=== PATIENT | female | born 1985 | race Caucasian/White ===

== ENCOUNTER 2016-11-22 17:00 | Inpatient (IN) | payer OTHER ==
--- NOTE | ~2016-11-22 | PN ---
Unit #: [id number] #: [id number] Patient: BOB HERNANDEZ [id number] [facility] [address] [place] [address] [id number] MR#: [id number] NAME: BOB HERNANDEZ ROOM: [facility] Age: 31 Sex: F Admission Date: 11/22/2016 : 1985 Attending Physician: Surekha Eaton M.D. Admitting Physician: Surekha Eatno M.D. Primary Care Physician: Generic Doctor Not In System [facility] PROGRESS NOTES DATE November 24, 2016 DISCUSSION Ms. Hernandez is a 31-year-old white female, who was seen today and chart was reviewed and the case was discussed with the staff. She reports not feeling good and states "but I'm still alive." The patient does report persistent depression and anxiety, feelings of hopelessness, helplessness, and suicidal ideations, and that she does not feel Cymbalta is helping her, but she states "it used to help." MENTAL STATUS EXAMINATION Young white female, who was casually dressed with fair personal hygiene and appears to be in no acute distress or discomfort. She was awake and alert on interaction with intact orientation. Her mood was anxious and depressed with a congruent affect. She reports having suicidal ideations but denies any homicidal ideations. Her insight and judgment remain slightly impaired. TREATMENT PLAN 1. We will continue her on her current medications and treatment protocol, and will monitor her response to the medications, and make further adjustments as needed. 2. We will continue to followup. Dictated by... Naz Ochoa/jose TD: 11/25/2016 08:08 JOB #: [id number] Unit #: [id number] #: [id number] Patient: BOB HERNANDEZ PROGRESS NOTES Page 1 of 1 X Surekha Eaton MD PROGRESS NOTE
--- NOTE | ~2016-11-22 | DS ---
Unit #: [id number] #: [id number] Patient: [facility] [id number] [facility] [address] [place] [address] [id number] MR#: [id number] NAME: BOB HERNANDEZ ROOM: [facility] Age: 31 Sex: F Admission Date: 11/22/2016 : 1985 Discharge Date: 12/01/2016 Attending Physician: Surekha Eaton M.D. Primary Care Physician: Generic Doctor Not In System DISCHARGE SUMMARY IDENTIFYING DATA Ms. Hernandez is a 31-year-old white female, who is a resident of [place], [place], and was self-referred to the hospital on a voluntary basis and was accompanied by her mother. CHIEF COMPLAINT "I've been on drug binge for the past week." DISCHARGE DIAGNOSES Psychiatric: Major depressive disorder, recurrent, moderate, without psychotic features; alcohol dependence, moderate and acute withdrawals; opioid dependence, moderate and acute withdrawals; methamphetamine dependence, moderate; cannabis abuse and dependence, moderate. Medical: None. Stressors: Mild psychosocial stressors. HISTORY OF PRESENT ILLNESS Please see initial psychiatric evaluation for details. PAST PSYCHIATRIC HISTORY Please see initial psychiatric evaluation for details. PAST MEDICAL HISTORY Please see initial psychiatric evaluation for details. HOSPITAL COURSE The patient was admitted to the adult psychiatric and chemical dependency unit at [facility] and was oriented to the hospital environment. Routine p.r.n. medications were initiated, and she was initially started on the detox protocol and was also started back on her home medications including her Cymbalta; however, she was seen to be exhibiting some significant depressive symptoms and even though she came out of the detox without any complication, she was still complaining of persistent depressive symptoms and suicidal ideations and as such, medications were adjusted and Cymbalta was gradually titrated up to 60 mg b.i.d. and rest of the medications were maintained and she was closely monitored. She was taking medications regularly and was tolerating them fairly well and was able to show a decent and therapeutic response with improvement in depression and anxiety and was denying any suicidal ideations, intent, or plan and as such, it was decided that she will be discharged home and will continue treatment on an outpatient basis. DISCHARGE MEDICATIONS Cymbalta 60 mg b.i.d. for depression, BuSpar 10 mg t.i.d. for anxiety, Unit #: [id number] #: [id number] Patient: BOB HERNANDEZ levothyroxine 0.1 mg a day for hypothyroidism. DISCHARGE CONDITION Stable. PROGNOSIS Fair. Dictated by... Naz Ochoa/saloni TD: 12/01/2016 06:25 JOB #: [id number] DISCHARGE SUMMARY Page 1 of 1 X Surekha Eaton MD X DISCHARGE SUMMARY
--- NOTE | ~2016-11-22 | PN ---
Unit #: [id number] #: [id number] Patient: BOB HERNANDEZ [id number] [facility] [address] [place] [address] [id number] I MR#: [id number] NAME: BOB HERNANDEZ ROOM: [facility] Age: 31 Sex: F Admission Date: 11/22/2016 : 1985 Attending Physician: Surekha Eaton M.D. Admitting Physician: Surekha Eaton M.D. Primary Care Physician: Generic Doctor Not In System [facility] PROGRESS NOTES DATE November 27, 2016 DISCUSSION Ms. Hernandez is a 31-year-old white female, who was seen today and chart was reviewed and the case was discussed with the staff. She has been anxious, withdrawn, and rather seclusive to herself. Meanwhile, she has been cooperative with the treatment recommendations and has been taking the medications and tolerating them fairly well with no reported side effects. MENTAL STATUS EXAMINATION Young white female, who was casually dressed with fair personal hygiene and appears to be in no acute distress or discomfort. The patient was awake and alert with intact orientation. Her mood was anxious with a congruent affect. Her speech is slow and restricted in content. She denies any suicidal or homicidal ideations, and also denies any auditory or visual hallucinations. Her insight and judgment remain slightly impaired. TREATMENT PLAN 1. We will continue her on her current medications and treatment protocol, and will monitor her response to the medications, and make further adjustments as needed. 2. We will continue to followup. Dictated by... Naz Ochoa/jose TD: 11/27/2016 08:59 JOB #: [id number] Unit #: [id number] #: [id number] Patient: BOB HERNANDEZ PROGRESS NOTES Page 1 of 1 X Surekha Eaton MD PROGRESS NOTE
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
--- NOTE | ~2016-11-22 | PN ---
Unit #: [id number] #: [id number] Patient: BOB HERNANDEZ [id number] [facility] [address] [place] [address] [id number] MR#: [id number] NAME: BOB HERNANDEZ ROOM: [facility] Age: 31 Sex: F Admission Date: 11/22/2016 : 1985 Attending Physician: Surekha Eaton M.D. Admitting Physician: Naz Ochoa PROGRESS NOTES DATE OF SERVICE: 11/29/2016 SUBJECTIVE Ms. Hernandez is a 31-year-old white female, who was seen today and chart was reviewed, and case was discussed with the staff. She has been anxious, withdrawn, and rather seclusive to herself. Meanwhile, she has been taking the medications and tolerating them fairly well with no reported side effects. MENTAL STATUS EXAMINATION Young white female, who was casually dressed with fair personal hygiene, appears to be in no acute distress or discomfort. She was awake and alert on interaction with intact orientation. Her mood was anxious with a congruent affect. Her speech was slow and goal directed. The patient denies any suicidal or homicidal ideations. Her insight and judgment remain slightly impaired. TREATMENT PLAN 1. We will continue her on her current medications and treatment protocol. We will monitor her response to the medications and make further adjustments as needed. 2. We will continue to follow up. Dictated by... Naz Ochoa/adenl TD: 11/29/2016 16:57 JOB #: [id number] [facility] PROGRESS NOTES Page 1 of 1 X Surekha Eaton MD PROGRESS NOTE
--- NOTE | ~2016-11-22 | CO ---
Unit #: [id number] #: [id number] Patient: ANA HERNANDEZ [id number] [place] [address] [id number] MR#: [id number] NAME: ANA HERNANDEZ ROOM: [facility] Age: 31 Sex: F Admission Date: 11/22/2016 : 1985 Attending Physician: Surekha Eaton M.D. Primary Care Physician: Generic Doctor Not In System Consultation Date: 11/27/2016 CONSULTATION REPORT SUBJECTIVE Ana is a 31-year-old who has complained of a rash under her arms in the folds of her legs and abdomen. This is a chronic rash and worse in the summer. PLAN We will start her on a hydrocortisone cream 1% to be applied to the affected areas b.i.d. She is also to use an antifungal powder. Dictated by... Emilie Boss P.A.-C. for Naz Olguin/saloni TD: 12/04/2016 02:51 JOB #: [id number] CONSULTATION REPORT Page 1 of 1 X Emilie Boss CONSULTATION REPORT
--- NOTE | ~2016-11-22 | HP ---
Unit #: [id number] #: [id number] Patient: BOB HERNANDEZ [id number] [place] [address] [id number] I MR#: [id number] NAME: BOB HERNANDEZ ROOM: [facility] Age: 31 Sex: F Admission Date: 11/22/2016 : 1985 Attending Physician: Surekha Eaton M.D. Admitting Physician: Surekha Eaton M.D. Primary Care Physician: Generic Doctor Not In System HISTORY AND PHYSICAL HISTORY OF PRESENT ILLNESS The patient is a 31-year-old female who states she is here due to detox from multiple drugs and alcohol. PAST MEDICAL HISTORY Significant for depression and anxiety and suicidal ideation. PAST SURGICAL HISTORY Significant for cholecystectomy. SOCIAL HISTORY Positive for alcohol and drugs. ALLERGIES None. FAMILY HISTORY Noncontributory. REVIEW OF SYSTEMS CONSTITUTIONAL: No fever or chills. HEENT: Denies any sore throat, ear pain or runny nose. CARDIOVASCULAR: Denies chest pain, irregular heart rhythm or palpitations. CHEST: Denies shortness of breath or cough. No hemoptysis. GASTROINTESTINAL: Denies nausea, vomiting, diarrhea or chronic constipation. ENDOCRINE: Denies history of increased thirst or urination. No recent significant weight loss or gain. GENITOURINARY: Denies dysuria, frequency, or hematuria. SKIN: Denies any rashes. HEMATOLOGIC: Denies history of increased bleeding or bruising. MUSCULOSKELETAL: Denies any hot, swollen joints. No generalized muscle pain. NEUROLOGIC: Denies problems with vision or speech. No frequent, severe headaches. No numbness, tingling or weakness in any extremities. Denies loss of bladder or bowel control. CURRENT MEDICATIONS 1. Nexium 20 mg two caps twice daily 2. BuSpar 10 mg p.o. t.i.d. 3. Levothyroxine 100 mg p.o. daily Unit #: [id number] #: [id number] Patient: BOB HERNANDEZ 4. Duloxetine 60 mg p.o. daily 5. Bydureon 2 mg sub-q weekly PHYSICAL EXAMINATION GENERAL: Alert, oriented in no acute distress. VITAL SIGNS: Temperature 98.7, heart rate 71, respirations 20, blood pressure 108/69. HEIGHT: 5 feet 6 inches WEIGHT: 264 pounds SKIN: Tattoo to the left foot, the midline lumbar area. Multiple red areas bilateral arms and lower extremities. HEENT: Normocephalic. TMs not viewed. Oral and nasal passages clear. Conjunctivae clear. PERRLA. EOMs intact. NECK: Supple without lymphadenopathy or thyromegaly. HEART: Regular rate and rhythm without murmur. LUNGS: Clear. ABDOMEN: Soft, nontender, without masses or hepatosplenomegaly. : Not done. EXTREMITIES: No evidence of cyanosis, clubbing or edema. Moves all without focal deficit. NEUROLOGICAL: Grossly within normal limits. Cranial Nerves: II: Visual sullivan are intact. III, IV AND : Extraocular movements are intact. Pupils are equal, round and reactive to light. V: Facial sensation is grossly normal. VII: Facial movements and expression are normal. VIII: Auditory acuity grossly intact. IX, X: Uvula is midline. Phonation is normal. XI: Patient shrugs shoulders and turns head normally. XII: Tongue protrudes in the midline. Sensory and Motor Function: Sensory and motor sensation is grossly normal. Motor: moves all extremities well. Coordination: Gait is normal. Deep Tendon Reflexes: Intact. IMPRESSION Psychiatric admission. RECOMMENDATIONS Psychiatric, per psychiatrist. MEDICAL: I see no contraindications to participating in facility's activities. MEDICAL PROGNOSIS Good. Dictated by... Tonio Medina/martin TD: 11/24/2016 02:49 JOB #: [id number] Unit #: [id number] #: [id number] Patient: BOB HERNANDEZ HISTORY AND PHYSICAL Page 1 of 1 X Yaima Gaytan APR X HISTORY AND PHYSICAL
--- NOTE | ~2016-11-22 | PN ---
Unit #: [id number] #: [id number] Patient: BOB HERNANDEZ [id number] [facility] [address] [place] [address] [id number] I MR#: [id number] NAME: BOB HERNANDEZ ROOM: [facility] Age: 31 Sex: F Admission Date: 11/22/2016 : 1985 Attending Physician: Surekha Eaton M.D. Admitting Physician: Surekha Eaton M.D. Primary Care Physician: Generic Doctor Not In System [facility] PROGRESS NOTES DATE November 28, 2016 DISCUSSION Ms. Hernandez is a 31-year-old white female, who was seen today and chart was reviewed and the case was discussed with the staff. She was cooperative with treatment recommendations and she has been taking the medications and tolerating them fairly well with no reported side effects. MENTAL STATUS EXAMINATION Young white female, who was casually dressed with fair personal hygiene and appears to be in no acute distress or discomfort. She was awake and alert on interaction with intact orientation. Her mood was anxious with a congruent affect. The patient denies any suicidal or homicidal ideations. Her insight and judgment remain significantly impaired. TREATMENT PLAN 1. We will continue her on her current medications and treatment protocol, and will monitor her response, and make further adjustments as needed. 2. We will continue to followup. Dictated by... Naz Ochoa/jose TD: 11/28/2016 08:44 JOB #: [id number] [facility] PROGRESS NOTES Page 1 of 1 X Surekha Eaton MD PROGRESS NOTE
--- NOTE | ~2016-11-22 | CO ---
Unit #: [id number] #: [id number] Patient: ANA HERNANDEZ [id number] [place] [address] [id number] MR#: [id number] NAME: ANA HERNANDEZ ROOM: [facility] Age: 31 Sex: F Admission Date: 11/22/2016 : 1985 Attending Physician: Surekha Eaton M.D. Primary Care Physician: Generic Doctor Not In System Consultation Date: 11/24/2016 CONSULTATION REPORT SUBJECTIVE Ana is a 31-year-old with abnormal urinalysis on admission. She has no complaints of urgency, frequency, or dysuria. There have been no recorded increased temperatures. OBJECTIVE GENERAL: Alert, obese, in no apparent distress. VITAL SIGNS: Blood pressure 120/70, heart rate 80, respirations 16, temperature 98.6. ABDOMEN: Soft and nontender. BACK: Negative CVA tenderness. DIAGNOSTIC STUDIES Admission urinalysis; 3+ bacteria, 50 to 100 wbc's. ASSESSMENT Urinary tract infection. PLAN Bactrim DS one p.o. b.i.d. x3 days. Dictated by... Emilie Boss P.A.-C. for Naz Olguin/saloni TD: 11/26/2016 02:17 JOB #: [id number] CONSULTATION REPORT Page 1 of 1 X Emilie Boss CONSULTATION REPORT
--- NOTE | ~2016-11-22 | PN ---
Unit #: [id number] #: [id number] Patient: BOB HERNANEDZ [id number] [facility] [address] [place] [address] [id number] MR#: [id number] NAME: BOB HERNANDEZ ROOM: [facility] Age: 31 Sex: F Admission Date: 11/22/2016 : 1985 Attending Physician: Surekha Eaton M.D. Admitting Physician: Surekha Eaton M.D. Primary Care Physician: Generic Doctor Not In System [facility] PROGRESS NOTES DATE November 30, 2016 DISCUSSION Ms. Hernandez is a 31-year-old white female, who was seen today and chart was reviewed and the case was discussed with the staff. She remains anxious, withdrawn, depressed, and rather seclusive to herself. Meanwhile, she has been cooperative with the treatment recommendations, and she has been taking the medications and tolerating them fairly well with no reported side effects. MENTAL STATUS EXAMINATION Young white female, who was casually dressed with fair personal hygiene and appears to be in no acute distress or discomfort. She was awake and alert on interaction with intact orientation. Her mood is anxious with a congruent affect. The patient denies any suicidal or homicidal ideations. Her insight and judgment remain slightly impaired. TREATMENT PLAN 1. We will continue her on her current medications and treatment protocol, and will monitor her response to the medications, and make further adjustments as needed. 2. We will continue to followup. Dictated by... Naz Ochoa/jose TD: 12/01/2016 08:53 JOB #: [id number] Unit #: [id number] #: [id number] Patient: BOB HERNANDEZ PROGRESS NOTES Page 1 of 1 X Surekha Eaton MD X PROGRESS NOTE
--- NOTE | ~2016-11-22 | PN ---
Unit #: [id number] #: [id number] Patient: BOB HERNANDEZ [id number] [facility] [address] [place] [address] [id number] MR#: [id number] NAME: BOB HERNANDEZ ROOM: [facility] Age: 31 Sex: F Admission Date: 11/22/2016 : 1985 Attending Physician: Surekha Eaton M.D. Admitting Physician: Surekha Eaton M.D. Primary Care Physician: Generic Doctor Not In System [facility] PROGRESS NOTES DATE November 25, 2016 DISCUSSION Ms. Hernandez is a 31-year-old white female, who was seen today and chart was reviewed and the case was discussed with the staff. The patient has been anxious, withdrawn, and rather seclusive to herself and reports persistent depressive symptoms. Meanwhile, she has been taking the medications and tolerating them fairly well with no reported side effects. MENTAL STATUS EXAMINATION Young white female, who was casually dressed with fair personal hygiene and appears to be in no acute distress or discomfort. The patient was awake and alert on interaction with intact orientation. Her mood was anxious with a congruent affect. The patient denies any suicidal or homicidal ideations. Her insight and judgment remain slightly impaired. TREATMENT PLAN 1. We will continue her on her current medications and treatment protocol, and will monitor her response to the medications, and make further adjustments as needed. 2. We will continue to followup. Dictated by... Naz Ochoa/jose TD: 11/26/2016 09:34 JOB #: [id number] Unit #: [id number] #: [id number] Patient: BOB HERNANDEZ PROGRESS NOTES Page 1 of 1 X Surekha Eaton MD X PROGRESS NOTE
--- NOTE | ~2016-11-22 | PN ---
Unit #: [id number] #: [id number] Patient: BOB HERNANDEZ [id number] [facility] [address] [place] [address] [id number] MR#: [id number] NAME: BOB HERNANDEZ ROOM: [facility] Age: 31 Sex: F Admission Date: 11/22/2016 : 1985 Attending Physician: Surekha Eaton M.D. Admitting Physician: Surekha Eaton M.D. Primary Care Physician: Generic Doctor Not In System [facility] PROGRESS NOTES DATE 11/26/2016 DISCUSSION Ms. Hernandez is a 31-year-old white female who was seen today and chart was reviewed and case was discussed with the staff. She has been anxious, withdrawn and rather seclusive to herself. Meanwhile, she has been complaining of significant anxiety and reporting that her current medication has not been helping her. Her Cymbalta was just increased to 90 mg daily and she still reports not feeling much better in her depressive symptoms. MENTAL STATUS EXAMINATION Young white female who was casually dressed with fair personal hygiene and appears to be in no acute distress or discomfort. She was awake and alert on interaction with intact orientation. Her mood was anxious with congruent affect. She denies any suicidal or homicidal ideation. Her insight and judgement remains slightly impaired. TREATMENT PLAN 1. Will continue current medications and treatment protocol. Will monitor response to the medications and make further adjustments as needed. 2. Will continue to follow up. Dictated by... Naz Ochoa/elie TD: 11/26/2016 18:26 JOB #: [id number] Unit #: [id number] #: [id number] Patient: BOB HERNANDEZ PROGRESS NOTES Page 1 of 1 X Surekha Eaton MD PROGRESS NOTE
[2016-11-23 11:07] LABS: URINE APPEARANCE CLOUDY; URINE BLOOD 4+ (NEG); URINE COLOR BROWN; URINE GLUCOSE NORM (NORM); URINE KETONE NEG (NEG); URINE LEUKOCYTE ESTERASE 3+ (NEG); URINE NITRATE POS (NEG); URINE PROTEIN 1+ (NEG); URINE UROBILINOGEN NORM (NORM)
[2016-11-23 11:11] LABS: URINE BILIRUBIN NEG (NEG)
[2016-11-23 11:38] LABS: BASOPHIL# 0.1 X10e3 (0-0.3); BASOPHIL% 0.8 % (0-2.5); EOSINOPHIL# 0.4 X10e3 (0-0.7); EOSINOPHIL% 4.8 % (0.0-7.0); HEMATOCRIT 37.3 % (35.0-45.0); LYMPHOCYTE# 3.8 X10e3 (1.0-3.5); LYMPHOCYTE% 51.7 % (17.0-45.0); MEAN CELL VOLUME 89.4 FL (83-96); MEAN CORPUSCULAR HEMOGLOBIN 28.7 PG (28-34); MEAN CORPUSCULAR HGB CONC 32.1 g/dL (30-36); MONOCYTE# 0.5 X10e3 (0-1.0); MONOCYTE% 6.6 % (3.0-12.0); NEUTROPHIL# 2.7 X10e3 (1.5-7.1); NEUTROPHIL% 36.1 % (40-75); PLATELET COUNT 461 X10e3 (140-420); RED BLOOD COUNT 4.18 X10e (3.90-5.30); RED CELL DISTRIBUTION WIDTH 13.8 % (11.0-15.5); WHITE BLOOD COUNT 7.4 X10e3 (4.0-10.5)
[2016-11-23 11:39] LABS: DIFF IND YES
[2016-11-23 11:49] LABS: ALBUMIN SERUM 3.4 g/dL (3.5-5.0); BILIRUBIN,TOTAL 0.2 mg/dL (0.2-2.0); CALCIUM SERUM 8.7 mg/dL (8.4-10.2); CREATININE SERUM 0.8 mg/dL (0.6-1.4); GLOM FILT RATE Estimated 98.3 mL/min (>60); POTASSIUM 3.4 mmol/L (3.5-5.1); PROTEIN TOTAL SERUM 6.3 g/dL (6.0-8.3)
[2016-11-23 12:16] LABS: AMPHETAMINE POS (NEG); BARBITURATES NEG (NEG); BENZODIAZEPINES NEG (NEG); COCAINE NEG (NEG); MARIJUANA NEG (NEG); OPIATES NEG (NEG); TRICYCLIC ANTIDEPRESSANTS NEG (NEG); U METHADONE NEG (NEG)
[2016-11-23 13:08] LABS: URBCS1 AUWI 25-50 /[HPF] (0-2); URINE AMORPHOUS SEDIMENT AMORP URATES; URINE BACTERIA AUWI 3+ (NEGATIVE); URINE CRYSTALS CALCIUM OXALATE /[HPF]; URINE SQUAMOUS EPITHELIAL CELL OCCAS /[HPF]; UWBCS1 AUWI 50-100 (0-5)
[2016-11-23 13:26] LABS: PLATELET ESTIMATE INCREASED (NORMAL)
[2016-11-23 13:27] LABS: RBC NORMAL YES; REACTIVE LYMPHS PRESENT
== END 2016-12-01 09:10 | disposition home or self-care (01) | DRG 885 ==
LOC: P1E 20:35
PROVIDERS: Psychiatry & Neurology Psychiatry
PROC: HZ2ZZZZ Detoxification Services for Substance Abuse Treatment (ICD-10-PCS; principal; 2016-11-22)
DX: F33.1 Major depressive disorder, recurrent, moderate (principal); F15.20 Other stimulant dependence, uncomplicated; F10.239 Alcohol dependence with withdrawal, unspecified; F11.23 Opioid dependence with withdrawal; N39.0 Urinary tract infection, site not specified; F12.20 Cannabis dependence, uncomplicated
CPT/HCPCS: 80053; 80307; 81003; 84703; 85025; 86592